=== PATIENT | male | born 1980 | race Caucasian/White ===

== ENCOUNTER 2017-02-13 13:30 | Emergency (ER) | payer SELFPAY ==
--- NOTE | 2017-02-13 14:37 | RAD ---
EXAM DESCRIPTION: Chest,2 Views CLINICAL HISTORY: palpitations COMPARISON: None FINDINGS: Two-view chest x-ray shows cardiomediastinal silhouette and pulmonary vasculature to be within normal limits. The lungs are normally aerated. No acute infiltrate or consolidation is seen. There is a 1 cm nodular density in the right suprahilar region between the posterior right sixth and seventh ribs is not appreciated on previous exam possibly overlapping the spinal lateral projection. There is a 6 mm nodular density in the right lower chest on PA projection only that could represent nipple shadow pulmonary nodule. Costophrenic angles are sharp. Osseous structures are unremarkable IMPRESSION: No radiographic evidence of acute cardiopulmonary disease. Question 1 cm noncalcified pulmonary nodule in the right suprahilar region. This could also represent prominent pulmonary vessel. Consider further evaluation with CT imaging. Pulmonary nodule versus nipple shadow in the right lower chest. Electronically signed by: Samm Stevenson MD 02/13/2017 2:36 PM CDT
--- NOTE | 2017-02-13 15:42 | ED.PDOC ---
History of Present Illness - General Chief Complaint: General Stated Complaint: Palpitations after getting up too fast Time Seen by Provider: 02/13/17 13:33 Source: patient Exam Limitations: no limitations - History of Present Illness Initial Comments: The patient is a 36-year-old male presenting to the emergency room secondary to a sensation of palpitations. The palpitations essentially stopped when he arrived here. He has recently had an upper respiratory tract infection. He has also recently stopped exercising. He does smoke and he does drink. He has had multiple previous episodes of palpitations in the past but on previous visits no one has been able to record any significant arrhythmia. He did wear a Holter device for one day after previous episode but did not have any episodes during that time. The patient reports that the palpitations lasted less than a minute today. He does have a history of some gastroesophageal reflux disease and takes medications on an as-needed basis. No chest pain. No syncopal or near syncope. He was unable to check his pulse during that time. Timing/Duration: unsure Severity: mild Improving Factors: nothing Worsening Factors: nothing Associated Symptoms: denies symptoms Allergies/Adverse Reactions: Allergies Penicillins Allergy (Verified 02/13/17 13:53) Unknown Home Medications: Ambulatory Orders NK [NK] 02/13/17 Review of Systems - Review of Systems Constitutional: States: no symptoms reported EENTM: States: no symptoms reported Respiratory: States: cough Cardiology: States: no symptoms reported Gastrointestinal/Abdominal: States: no symptoms reported Genitourinary: States: no symptoms reported Musculoskeletal: States: no symptoms reported Skin: States: no symptoms reported Neurological: States: no symptoms reported Endocrine: States: no symptoms reported All other Systems: No Change from Baseline Past Medical History (General) - Patient Medical History Hx Seizures: No Hx Stroke: No Hx Dementia: No Hx Asthma: No Hx of COPD: No Hx Cardiac Disorders: No Hx Congestive Heart Failure: No Hx Pacemaker: No Hx Hypertension: No Hx Thyroid Disease: No Hx Diabetes: No Hx Gastroesophageal Reflux: No Hx Renal Disease: No Hx Cancer: No Hx of HIV: No Hx Hepatitis C: No Hx MRSA: No - Vaccination History Hx Tetanus, Diphtheria Vaccination: Yes Hx Influenza Vaccination: No Hx Pneumococcal Vaccination: No - Social History Hx Tobacco Use: Yes Hx Chewing Tobacco Use: No Hx Alcohol Use: Yes Hx Substance Use: No Hx Substance Use Treatment: No Hx Depression: No Hx Physical Abuse: No Hx Emotional Abuse: No Hx Suspected Abuse: No - Female History Patient : No Family Medical History - Family History Mother Family History: Unknown Living Status: Hx Family Cancer: Yes - breast, then brain Father Living Status: Still Living Hx Cardiac Disease: Yes - CABG Physical Exam - Physical Exam General Appearance: Alert, Anxious, No apparent distress Eye Exam: bilateral normal Ears, Nose, Throat: hearing grossly normal, normal ENT inspection, normal pharynx Neck: non-tender, full range of motion, supple, normal inspection Respiratory: chest non-tender, lungs clear, normal breath sounds, no respiratory distress, no accessory muscle use Cardiovascular/Chest: normal peripheral pulses, regular rate, rhythm, no edema Peripheral Pulses: radial,right: 2+, radial,left: 2+, dorsalis pedis,right: 2+, dorsalis pedis,left: 2+ Gastrointestinal/Abdominal: non tender, soft Rectal Exam: deferred Back Exam: normal inspection, no CVA tenderness Extremity: normal range of motion, non-tender, normal inspection, no pedal edema , normal capillary refill Neurologic: ferry engineer II-XII nml as tested, no motor/sensory deficits, alert, normal mood/affect, oriented x 3 Skin Exam: normal color Comments: Vital Signs - 24 hr 02/13/17 13:53 Pulse Rate [ 93 H Left Radial] Respiratory 20 Rate Blood Pressure 144/98 [Left Arm] O2 Sat by Pulse 99 Oximetry Progress - Progress Progress: 02/13/17 15:43 the patient is a 36-year-old male presenting secondary to palpitations. Source of the palpitations is uncertain. Given his history, it could either be some esophageal irritation from his untreated gastroesophageal reflux disease or he may have a history of SVT that has gone undiagnosed to this point. I would recommend that the patient follow up with his primary care doctor in the coming week and get set up with a CardioNet device to wear for a period of 2 weeks. He should picker famotidine and take 20 mg twice daily for the next month and then 20 mg daily after that. I would recommend that he follow up with gastroenterology in a couple of months and have an upper endoscopy performed given his history of reflux. He should also decrease his alcohol and tobacco intake to help with that problem as well. He needs to keep a pulse oximeter with him so that he can check his pulse the next time he has palpitations. A number in the high 100s would help confirm the diagnosis of an arrhythmia. Additionally the patient did have a small nodule on his x-ray of his chest today. He should have an x-ray repeated in a few weeks for reevaluation of the area. ER warnings were given. - Results/Orders Results/Orders: Laboratory Tests 02/13/17 02/13/17 02/13/17 14:20 14:20 14:20 WBC 8.0 RBC 4.77 Hgb 14.1 Hct 41.7 L MCV 87.4 MCH 29.7 MCHC 33.9 RDW 13.6 Plt Count 161 MPV 8.8 Absolute Neuts (auto) 5.20 Absolute Lymphs (auto) 2.10 Absolute Monos (auto) 0.50 Absolute Eos (auto) 0.10 Absolute Basos (auto) 0.10 Neutrophils % 64.9 Lymphocytes % 26.8 Monocytes % 6.2 Eosinophils % 1.4 Basophils % 0.7 PT 10.3 INR 0.910 PTT (SP) 28.0 D-Dimer, Quantitative < 200 Sodium 135 Potassium 3.9 Chloride 100 L Carbon Dioxide 27 Anion Gap 11.9 L BUN 15 Creatinine 1.24 BUN/Creatinine Ratio 12.1 Random Glucose 98 Serum Osmolality 270.9 L Calcium 9.0 Magnesium 1.9 Total Bilirubin 0.4 AST 34 ALT 30 Alkaline Phosphatase 72 Creatine Kinase 102 CK-MB (CK-2) 1.2 CK-MB (CK-2) % Not Reportable Troponin I < 0.02 B-Natriuretic Peptide 5.1 Serum Total Protein 6.4 Albumin 3.5 Globulin 2.9 Albumin/Globulin Ratio 1.2 TSH 1.53 chest x-ray shows no definitive acute pathology however there is a right perihilar pulmonary nodule that does need to have a repeat chest x-ray performed in the coming weeks. Pulse oximetry confirms no tachycardia while the patient is here. Telemetry was not available. EKG shows normal sinus rhythm. No acute ST segment changes concerning for ischemia. Normal axis. Departure - Departure Clinical Impression: Intermittent palpitations Disposition: Discharge to Home or Self Care Condition: Fair Departure Forms: ED Discharge - Pt. Copy, Patient Portal Self Enrollment Instructions: Paroxysmal Supraventricular Tachycardia, DI for Gastroesophageal Reflux Disease (GERD) Diet: bland diet Activity: increase activity as tolerated Home Medications: Ambulatory Orders NK [NK] 02/13/17 Additional Instructions: the patient is a 36-year-old male presenting secondary to palpitations. Source of the palpitations is uncertain. Given his history, it could either be some esophageal irritation from his untreated gastroesophageal reflux disease or he may have a history of SVT that has gone undiagnosed to this point. I would recommend that the patient follow up with his primary care doctor in the coming week and get set up with a CardioNet device to wear for a period of 2 weeks. He should picker famotidine and take 20 mg twice daily for the next month and then 20 mg daily after that. I would recommend that he follow up with gastroenterology in a couple of months and have an upper endoscopy performed given his history of reflux. He should also decrease his alcohol and tobacco intake to help with that problem as well. He needs to keep a pulse oximeter with him so that he can check his pulse the next time he has palpitations. A number in the high 100s would help confirm the diagnosis of an arrhythmia. Additionally the patient did have a small nodule on his x-ray of his chest today. He should have an x-ray repeated in a few weeks for reevaluation of the area. ER warnings were given. instructions for maneuvers on how to terminate SVT have been given to the patient for him to try with his next episode, though previous episodes seem to have been brief already.
[2017-02-13 16:06] VITALS: BP 127/88; O2SAT 98
== END 2017-02-13 15:55 | disposition home or self-care (01) ==
LOC: ER 13:30
DX: R00.2 Palpitations (principal); R91.1 Solitary pulmonary nodule; Z87.891 Personal history of nicotine dependence; Z88.0 Allergy status to penicillin

== ENCOUNTER 2017-02-20 13:21 | Emergency (ER) | payer SELFPAY ==
[2017-02-20] MEDS ORDERED: predniSONE 20 MG TAB PO ONE (13:42)
[2017-02-20] MEDS ORDERED: IPRATROPIUM/ALBUTEROL 3 ML VIAL NEB ONE (13:42)
--- NOTE | 2017-02-20 13:42 | ED.PDOC ---
History of Present Illness - General Chief Complaint: Respiratory Problem Stated Complaint: COUGH Time Seen by Provider: 02/20/17 13:35 Source: patient Exam Limitations: no limitations - History of Present Illness Comments: Louis Linares 36 y/o male stated that he had productive cough on and off for the last 3 weeks which is not getting better .Denies asthma ,ill contact,or/ fever Timing/Duration: constant, other - 3 weeks Cough Quality/Degree: productive cough - clear phlegm Possible Cause: no prior episodes Worsening Factors: nothing Associated Symptoms: chest pain/soreness - on coughing Respiratory Risk Factors: other - smoking Allergies/Adverse Reactions: Allergies Penicillins Allergy (Verified 02/13/17 13:53) Unknown Home Medications: Ambulatory Orders Benzonatate Perles [Tessalon Perles] 100 mg PO TID #30 cap 02/20/17 Dextromethorphan-Diphenhydrami [Diabetic Tussin Cold & Fl 10-12.5-325 mg/5Ml] 2 tsp PO BID #120 liq 02/20/17 Sulfa/Trimeth 800/160 (Ds) Tab [Bactrim DS Tab] 1 ea PO BID #14 tab 02/20/17 predniSONE 10 mg PO BID #14 tab 02/20/17 Past Medical History (General) - Patient Medical History Hx Seizures: No Hx Stroke: No Hx Dementia: No Hx Asthma: No Hx of COPD: No Hx Cardiac Disorders: No Hx Congestive Heart Failure: No Hx Pacemaker: No Hx Hypertension: No Hx Thyroid Disease: No Hx Diabetes: No Hx Gastroesophageal Reflux: No Hx Renal Disease: No Hx Cancer: No Hx of HIV: No Hx Hepatitis C: No Hx MRSA: No Surgical History: other - orchiopexy in childhood for undescended testis - Vaccination History Hx Tetanus, Diphtheria Vaccination: Yes Hx Influenza Vaccination: No Hx Pneumococcal Vaccination: No - Social History Hx Tobacco Use: Yes Hx Chewing Tobacco Use: No Hx Alcohol Use: Yes Hx Substance Use: No Hx Substance Use Treatment: No Hx Depression: No Hx Physical Abuse: No Hx Emotional Abuse: No Hx Suspected Abuse: No - Female History Patient : No Family Medical History - Family History Mother Family History: Unknown Living Status: Hx Family Cancer: Yes - breast, then brain Father Living Status: Still Living Hx Family Asthma: Yes - COPD Hx Cardiac Disease: Yes - CABG Physical Exam - Physical Exam General Appearance: Alert, Comfortable, No apparent distress Eye Exam: bilateral normal ENT Exam: normal ENT inspection, hearing grossly normal, pharynx normal Neck: non-tender, full range of motion, normal inspection Respiratory: chest non-tender, no respiratory distress, wheezing Cardiovascular/Chest: normal peripheral pulses, regular rate, rhythm, no murmur Gastrointestinal/Abdominal: non tender, soft, no organomegaly Extremity: no pedal edema, no calf tenderness Neurologic: alert, normal mood/affect, oriented x 3 Skin Exam: normal color, warm/dry Lymphatic: no adenopathy Progress - Progress Progress: 02/20/17 13:51 Vital Signs - 8 hr 02/20/17 13:34 Temperature 98.4 F Pulse Rate [ 95 H Left Brachial] Respiratory 20 Rate Blood Pressure 133/95 [Left Arm] O2 Sat by Pulse 96 Oximetry - EKG/XRAY/CT XRAY: chest - no consolidation/pneumothorax Departure - Departure Clinical Impression: Bronchitis Time of Disposition: 14:42 Disposition: Discharge to Home or Self Care Departure Forms: ED Discharge - Pt. Copy, Patient Portal Self Enrollment Instructions: Acute Bronchitis, DI for Acute Bronchitis, Acute Bronchitis ( Alternative Therapy), Serious Ways to Stop Smoking, All Forms of Smoking Are Bad for You, How to Quit Smoking Prescriptions: Benzonatate Perles [Tessalon Perles] 100 mg PO TID #30 cap Dextromethorphan-Diphenhydrami [Diabetic Tussin Cold & Fl 10-12.5-325 mg/5Ml] 2 tsp PO BID #120 liq predniSONE 10 mg PO BID #14 tab Sulfa/Trimeth 800/160 (Ds) Tab [Bactrim DS Tab] 1 ea PO BID #14 tab Home Medications: Ambulatory Orders Benzonatate Perles [Tessalon Perles] 100 mg PO TID #30 cap 02/20/17 Dextromethorphan-Diphenhydrami [Diabetic Tussin Cold & Fl 10-12.5-325 mg/5Ml] 2 tsp PO BID #120 liq 17 Sulfa/Trimeth 800/160 (Ds) Tab [Bactrim DS Tab] 1 ea PO BID #14 tab 02/20/17 predniSONE 10 mg PO BID #14 tab 02/20/17
[2017-02-20 13:44] VITALS: TEMP 98.4
[2017-02-20] MEDS ORDERED: BENZONATATE PERLES 100 MG CAP PO ONE (13:45)
[2017-02-20] MEDS ORDERED: diphenhydrAMINE HCL 25 MG CAP PO ONE (13:45)
--- NOTE | 2017-02-20 14:17 | RAD ---
EXAM DESCRIPTION: Chest,2 Views CLINICAL HISTORY: cough COMPARISON: February 13, 2017 FINDINGS: Two-view chest x-ray shows cardiomediastinal silhouette and pulmonary vasculature to be within normal limits. The lungs are normally aerated and clear. Costophrenic angles are sharp. Osseous structures are unremarkable IMPRESSION: No radiographic evidence of acute cardiopulmonary disease. Abdomen 1 cm nodular density in the right suprahilar region is unchanged from previous exam. Electronically signed by: Samm Stevenson MD 02/20/2017 2:15 PM CDT
[2017-02-20 15:04] VITALS: BP 123/83; O2SAT 95
== END 2017-02-20 15:00 | disposition home or self-care (01) ==
LOC: ER 13:21
DX: J40 Bronchitis, not specified as acute or chronic (principal); Z88.0 Allergy status to penicillin; Z87.891 Personal history of nicotine dependence
CPT/HCPCS: 71020; 94640; J7512; J7620; Q0163

== ENCOUNTER → 2017-04-15 | Outpatient (CLI) | payer SELFPAY ==
--- NOTE | 2017-04-17 11:57 | CT ---
EXAM DESCRIPTION: Chest w/Contrast CT. CLINICAL HISTORY: ABN FINDINGS ON DIAGNOSTIC IMAGING COMPARISON: Chest radiograph 02/20/2017. TECHNIQUE: Spiral-axial scans at 5.0 mm intervals through the lungs and thorax with IV contrast. 2.5 mm lung algorithm axial reconstructions. Coronal and sagittal 2.0 Mm reconstructions. No adverse reactions. Total Exam DLP: 541.43 mGy-cm. This exam was performed according to our departmental dose-optimization program which includes automated exposure control, adjustment of the mA and/or kV according to patient size and/or use of iterative reconstruction technique; to reduce radiation dose to as low as reasonably achievable (ALARA). FINDINGS: Small bilateral apical pleural blebs and bulla. No abnormal nodules infiltrates or masses bilaterally. No pleural effusion or pneumothorax. Specifically, no pulmonary nodule in the right suprahilar region. Included thyroid with homogeneous enhancement. No adenopathy or soft tissue masses at the base of the neck or bilateral axilla. No soft tissue masses or enlarged lymph nodes in the mediastinum or hilum bilaterally. Gallbladder is contracted. Included spleen and adrenal glands are unremarkable. No focal abnormalities in the included pancreas or liver. No subdiaphragmatic fluid or free air in the included peritoneal space. Thoracic osseous structures are unremarkable. No bone destruction. IMPRESSION: 1. No abnormalities in the lungs mediastinum or sukhdev. Specifically, no pulmonary nodule in the right suprahilar region. Electronically signed by: Jhoan Solis MD 04/17/2017 11:56 AM [employer]
== END ==
LOC: YCFC.O 14:17
DX: R93.8 Abnormal findings on diagnostic imaging of other specified body structures (principal)

== ENCOUNTER 2017-07-15 10:43 | Emergency (ER) | payer SELFPAY ==
[2017-07-15 10:58] VITALS: TEMP 98.5
--- NOTE | 2017-07-15 14:38 | ED.PDOC ---
History of Present Illness - General Chief Complaint: Chest Pain/[place] Stated Complaint: chest tightness Time Seen by Provider: 07/15/17 12:39 - History of Present Illness Allergies/Adverse Reactions: Allergies Penicillins Allergy (Verified 02/13/17 13:53) Unknown Home Medications: Ambulatory Orders Aspirin [(None)] 325 mg PO QD 07/15/17 Hyoscyamine Sulfate [Levsin/Sl] 0.125 mg SL Q6HR PRN #30 sub 07/15/17 Pantoprazole Tablet [Protonix] 40 mg PO ACBK 10 Days #10 tab 07/15/17 Sucralfate Tab [Carafate Tab] 1 gm PO TID #30 tablet 07/15/17 Past Medical History (General) - Patient Medical History Hx Seizures: No Hx Stroke: No Hx Dementia: No Hx Asthma: No Hx of COPD: No Hx Cardiac Disorders: Yes - SVT Hx Congestive Heart Failure: No Hx Pacemaker: No Hx Hypertension: No Hx Thyroid Disease: No Hx Diabetes: No Hx Gastroesophageal Reflux: No Hx Renal Disease: No Hx Cancer: No Hx of HIV: No Hx Hepatitis C: No Hx MRSA: No - Vaccination History Hx Tetanus, Diphtheria Vaccination: Yes Hx Influenza Vaccination: No Hx Pneumococcal Vaccination: No - Social History Hx Tobacco Use: Yes Hx Chewing Tobacco Use: No Hx Alcohol Use: Yes Hx Substance Use: No Hx Substance Use Treatment: No Hx Depression: No Hx Physical Abuse: No Hx Emotional Abuse: No Hx Suspected Abuse: No - Female History Patient : No Family Medical History - Family History Mother Family History: Unknown Living Status: Hx Family Cancer: Yes - breast, then brain Father Living Status: Still Living Hx Family Asthma: Yes - COPD Hx Cardiac Disease: Yes - CABG Progress - Progress Progress: 07/15/17 14:39 pt reports improvement of burping and gerd symptoms after zantac; gave chest pain precautions; will return if symptoms change and become more inline with angina. pt is perc negative. unlikely dissection- atypical presentation bilateral equal pulses. currently pt non toxic, no symptoms Departure - Departure Clinical Impression: Precordial chest pain GERD (gastroesophageal reflux disease) Qualifiers: Esophagitis presence: esophagitis presence not specified Qualified Code(s): K21.9 - Gastro-esophageal reflux disease without esophagitis Time of Disposition: 14:35 Disposition: Discharge to Home or Self Care Condition: Excellent Departure Forms: ED Discharge - Pt. Copy, Patient Portal Self Enrollment Instructions: DI for Chest Pain, Heartburn -- Overview, GERD Diet Diet: full liquid diet - for next 48 hours Activity: increase activity as tolerated Referrals: Kimber Blackwell MD [Primary Care Provider] - 1-2 Weeks Prescriptions: Hyoscyamine Sulfate [Levsin/Sl] 0.125 mg SL Q6HR PRN #30 sub PRN Reason: Pain Pantoprazole Tablet [Protonix] 40 mg PO ACBK 10 Days #10 tab Sucralfate Tab [Carafate Tab] 1 gm PO TID #30 tablet Home Medications: Ambulatory Orders Aspirin [(None)] 325 mg PO QD 07/15/17 Hyoscyamine Sulfate [Levsin/Sl] 0.125 mg SL Q6HR PRN #30 sub 07/15/17 Pantoprazole Tablet [Protonix] 40 mg PO ACBK 10 Days #10 tab 07/15/17 Sucralfate Tab [Carafate Tab] 1 gm PO TID #30 tablet 07/15/17 Additional Instructions: return if acute worsening of symptoms, problem, concern; continue tobacco cessation and decrease ETOH intake
[2017-07-15 14:56] VITALS: BP 152/93; O2SAT 95
== END 2017-07-15 14:56 | disposition home or self-care (01) ==
LOC: ER 10:43
DX: R07.2 Precordial pain (principal); K21.9 Gastro-esophageal reflux disease without esophagitis; Z87.891 Personal history of nicotine dependence; Z79.82 Long term (current) use of aspirin

== ENCOUNTER 2017-10-26 12:20 | Emergency (ER) | payer SELFPAY ==
[2017-10-26 12:39] VITALS: TEMP 98.8
--- NOTE | 2017-10-26 12:41 | ED.PDOC ---
History of Present Illness - General Chief Complaint: General Stated Complaint: L anterolateral chest wall discomfort Time Seen by Provider: 10/26/17 12:37 Source: patient Exam Limitations: no limitations - History of Present Illness Initial Comments: Patient presents with left rib pain after falling on his left side two night ago. He said he was drinking and lost his balance. At first the pain wasn't so bad but then it got worse over the weekend. Pain is throbbing and constant, located over the left anterio-lateral 7th rib. Worse with movement, better with rest. No associated symptoms. No previous injuries. No other complaints. Timing/Duration: other - 48 hours Severity: mild Improving Factors: rest Worsening Factors: movement Associated Symptoms: denies symptoms Allergies/Adverse Reactions: Allergies Penicillins Allergy (Verified 10/26/17 12:26) Unknown Home Medications: Ambulatory Orders NK [NK] 10/26/17 Past Medical History (General) - Patient Medical History Hx Seizures: No Hx Stroke: No Hx Dementia: No Hx Asthma: No Hx of COPD: No Hx Cardiac Disorders: Yes - SVT Hx Congestive Heart Failure: No Hx Pacemaker: No Hx Hypertension: No Hx Thyroid Disease: No Hx Diabetes: No Hx Gastroesophageal Reflux: No Hx Renal Disease: No Hx Cancer: No Hx of HIV: No Hx Hepatitis C: No Hx MRSA: No - Vaccination History Hx Tetanus, Diphtheria Vaccination: Yes Hx Influenza Vaccination: No Hx Pneumococcal Vaccination: No - Social History Hx Tobacco Use: Yes Hx Chewing Tobacco Use: No Hx Alcohol Use: Yes Hx Substance Use: No Hx Substance Use Treatment: No Hx Depression: No Hx Physical Abuse: No Hx Emotional Abuse: No Hx Suspected Abuse: No - Female History Patient : No Family Medical History - Family History Mother Family History: Unknown Living Status: Hx Family Cancer: Yes - breast, then brain Father Living Status: Still Living Hx Family Asthma: Yes - COPD Hx Cardiac Disease: Yes - CABG Physical Exam - Physical Exam General Appearance: Alert Eye Exam: bilateral normal Ears, Nose, Throat: normal ENT inspection Neck: non-tender, full range of motion, supple Respiratory: lungs clear, normal breath sounds, no respiratory distress Cardiovascular/Chest: normal peripheral pulses, regular rate, rhythm, other - TTP over lateral left ribs 7-8. There is a quarter shaped bruise anteriorly at the same level that is NTTP. Gastrointestinal/Abdominal: normal bowel sounds, non tender, soft Back Exam: normal inspection, no CVA tenderness Extremity: normal range of motion, non-tender Neurologic: evaluation analyst II-XII nml as tested, no motor/sensory deficits, alert Skin Exam: normal color Progress - Progress Progress: 10/26/17 13:12 3 views of the left ribs showed no fractures nor dislocations. Care instructions given. Questions were elicited and answered. Patient voiced understanding and agreement with the plan. Departure - Departure Clinical Impression: Contusion of rib on left side, Tobacco abuse counseling Disposition: Discharge to Home or Self Care Condition: Good Departure Forms: ED Discharge - Pt. Copy, Patient Portal Self Enrollment Diet: resume usual diet Activity: increase activity as tolerated Referrals: Kimber Blackwell MD [Primary Care Provider] - 1-2 Weeks Home Medications: Ambulatory Orders NK [NK] 10/26/17 Additional Instructions: Ice to painful area three times per day for two more days then switch to heat twice per day until healed. Tylenol or ibuprofen for pain control. Stop smoking tobacco of any sort. Follow up with your regular doctor if pain continues longer than two weeks or if you develop shortness of breath. See your regular doctor about smoking cessation.
--- NOTE | 2017-10-26 13:04 | RAD ---
EXAM: 3 VIEWS OF THE LEFT RIBS AND PA CHEST RADIOGRAPH CLINICAL INDICATION: Pain post fall COMPARISON: Compared to the chest radiographs of April 15, 2017. FINDINGS: No displaced left rib fractures. No lytic or blastic bone lesions. The partially visualized left humerus, left shoulder and left scapula appear intact. Left lung is clear. No left effusion or left pneumothorax. IMPRESSION: No displaced rib fractures. Normal examination. Electronically signed by: Joaquin Collins MD 10/26/2017 1:03 PM CDT
[2017-10-26] MEDS ORDERED: IBUPROFEN 200 MG TAB PO ONE (13:28)
[2017-10-26 13:43] VITALS: BP 139/79; O2SAT 99
== END 2017-10-26 13:36 | disposition home or self-care (01) ==
LOC: ER 12:20
DX: S20.212A Contusion of left front wall of thorax, initial encounter (principal); F17.200 Nicotine dependence, unspecified, uncomplicated; Z88.0 Allergy status to penicillin; W18.39XA Other fall on same level, initial encounter; Y92.89 Other specified places as the place of occurrence of the external cause

== ENCOUNTER 2018-05-26 17:04 | Emergency (ER) | payer SELFPAY ==
[2018-05-26 17:17] VITALS: BP 136/114; TEMP 98.2; O2SAT 97
[2018-05-26] MEDS ORDERED: OSELTAMIVIR 75 MG CAP PO ONE (17:19)
[2018-05-26] MEDS ORDERED: AZITHROMYCIN 250 MG TAB PO ONE (17:19)
[2018-05-26] MEDS ORDERED: IBUPROFEN 200 MG TAB PO ONE (17:21)
--- NOTE | 2018-05-26 17:22 | ED.PDOC ---
History of Present Illness - General Time Seen by Provider: 05/26/18 17:07 Source: patient Exam Limitations: no limitations - History of Present Illness Initial Comments: The patient is 37-year-old male presenting to the emergency room with sore throat and runny nose cough and congestion along with body aches. His son tested positive for the flu last night. He started approximately 1-2 weeks ago with laryngitis and a moderately productive cough. He did not get this treated but was getting better until last night when he started getting worse again. No hypoxia. He is moderately hypertensive but he is obviously uncomfortable. No respiratory distress. No hypoxia. Timing/Duration: unsure Severity: moderate Improving Factors: nothing Worsening Factors: nothing Associated Symptoms: cough, diaphoresis, fever/chills, headaches, loss of appetite, malaise Allergies/Adverse Reactions: Allergies Penicillins Allergy (Verified 05/26/18 17:17) Unknown Home Medications: Ambulatory Orders Azithromycin 500 mg PO DAILY #5 tab 05/26/18 Oseltamivir Capsule [Tamiflu] 75 mg PO BID 5 Days #10 capsule 05/26/18 Review of Systems - Review of Systems Constitutional: States: chills, fever, malaise EENTM: States: nose congestion, throat pain Respiratory: States: cough Cardiology: States: no symptoms reported Gastrointestinal/Abdominal: States: no symptoms reported Genitourinary: States: no symptoms reported Musculoskeletal: States: muscle pain Skin: States: no symptoms reported Neurological: States: headache Endocrine: States: no symptoms reported All other Systems: No Change from Baseline Past Medical History (General) - Patient Medical History Hx Seizures: No Hx Stroke: No Hx Dementia: No Hx Asthma: No Hx of COPD: No Hx Cardiac Disorders: Yes - SVT Hx Congestive Heart Failure: No Hx Pacemaker: No Hx Hypertension: No Hx Thyroid Disease: No Hx Diabetes: No Hx Gastroesophageal Reflux: No Hx Renal Disease: No Hx Cancer: No Hx of HIV: No Hx Hepatitis C: No Hx MRSA: No Surgical History: no surgical history - Vaccination History Hx Tetanus, Diphtheria Vaccination: Yes Hx Influenza Vaccination: No Hx Pneumococcal Vaccination: No - Social History Hx Tobacco Use: Yes Hx Chewing Tobacco Use: No Hx Alcohol Use: Yes - ocassionally Hx Substance Use: No Hx Substance Use Treatment: No Hx Depression: No Hx Physical Abuse: No Hx Emotional Abuse: No Hx Suspected Abuse: No - Female History Patient : No Family Medical History - Family History Mother Family History: Unknown Living Status: Hx Family Cancer: Yes - breast, then brain Father Living Status: Still Living Hx Family Asthma: Yes - COPD Hx Cardiac Disease: Yes - CABG Physical Exam - Physical Exam General Appearance: Alert, Other - He is obviously uncomfortable Eye Exam: bilateral normal Ears, Nose, Throat: nasal congestion, pharyngeal erythema Neck: full range of motion, supple Respiratory: lungs clear, normal breath sounds, no respiratory distress, no accessory muscle use Cardiovascular/Chest: normal peripheral pulses, regular rate, rhythm, no edema Peripheral Pulses: radial,right: 2+, radial,left: 2+ Gastrointestinal/Abdominal: non tender, soft Rectal Exam: deferred Back Exam: no CVA tenderness, no vertebral tenderness Extremity: non-tender, normal inspection, no pedal edema, normal capillary refill Neurologic: detention sergeant II-XII nml as tested, alert, normal mood/affect, oriented x 3 Skin Exam: normal color Comments: Vital Signs - 24 hr 05/26/18 17:10 Temperature 98.2 F Pulse Rate [ 123 H Left Radial] Respiratory 26 H Rate Blood Pressure 136/114 [Left Arm] O2 Sat by Pulse 97 Oximetry Progress - Progress Progress: 05/26/18 17:23 the patient is a 37-year-old male presenting with what appears to be incompletely resolved mild bronchitis with what is most likely superimposed influenza given that his son tested positive last night. The patient is going to be covered with azithromycin and Tamiflu. He was given doses of both here. He also needs to keep himself well hydrated and take Motrin 600 mg by mouth every 8 hours with some food. ER warnings were given. Keep routine follow-up with primary care doctor otherwise. Departure - Departure Clinical Impression: Influenza Acute bronchitis Qualifiers: Bronchitis organism: unspecified organism Qualified Code(s): J20.9 - Acute bronchitis, unspecified Disposition: Discharge to Home or Self Care Condition: Fair Instructions: Flu, Adult (DC) Diet: regular diet Activity: increase activity as tolerated Prescriptions: Azithromycin 500 mg PO DAILY #5 tab Oseltamivir Capsule [Tamiflu] 75 mg PO BID 5 Days #10 capsule Home Medications: Ambulatory Orders Azithromycin 500 mg PO DAILY #5 tab 05/26/18 Oseltamivir Capsule [Tamiflu] 75 mg PO BID 5 Days #10 capsule 05/26/18 Additional Instructions: the patient is a 37-year-old male presenting with what appears to be incompletely resolved mild bronchitis with what is most likely superimposed influenza given that his son tested positive last night. The patient is going to be covered with azithromycin and Tamiflu. He was given doses of both here. He also needs to keep himself well hydrated and take Motrin 600 mg by mouth every 8 hours with some food. ER warnings were given. Keep routine follow-up with primary care doctor otherwise.
== END 2018-05-26 17:50 | disposition home or self-care (01) ==
LOC: ER 17:04
DX: J20.9 Acute bronchitis, unspecified (principal); J11.1 Influenza due to unidentified influenza virus with other respiratory manifestations; Z88.0 Allergy status to penicillin; Z87.891 Personal history of nicotine dependence

== ENCOUNTER 2018-07-13 08:22 | Emergency (ER) | payer SELFPAY ==
[2018-07-13] MEDS ORDERED: IBUPROFEN 200 MG TAB PO ONE (08:54)
--- NOTE | 2018-07-13 09:09 | ED.PDOC ---
History of Present Illness - General Chief Complaint: Fever Stated Complaint: chills, fever Time Seen by Provider: 07/13/18 09:02 Source: patient Exam Limitations: no limitations - History of Present Illness Initial Comments: PT PRESENTS TO ED WITH COMPLAINTS OF SUBJECTIVE FEVER, BODYACHES AND RED BUMPS NOTED ON BODY X 1 DAY. PT DENIES COUGH, CONGESTION, NAUSEA, VOMITING, DIARRHEA. PT IS CONCERNED HE MAY HAVE THE FLU AND WANTS TO BE CHECKED. Severity: mild Associated Symptoms: fever/chills, rash Allergies/Adverse Reactions: Allergies Penicillins Allergy (Verified 05/26/18 17:17) Unknown Home Medications: Ambulatory Orders Azithromycin 500 mg PO DAILY #5 tab 05/26/18 Oseltamivir Capsule [Tamiflu] 75 mg PO BID 5 Days #10 capsule 05/26/18 Ibuprofen 800 mg PO Q8HR PRN #30 tab 07/13/18 Oseltamivir Capsule [Tamiflu] 75 mg PO BID 5 Days #10 capsule 07/13/18 Review of Systems - Review of Systems Constitutional: States: chills, fever. Denies: malaise EENTM: Denies: nose congestion, throat pain Respiratory: Denies: cough, short of breath Gastrointestinal/Abdominal: Denies: abdominal pain, diarrhea, nausea, vomiting Past Medical History (General) - Patient Medical History Hx Seizures: No Hx Stroke: No Hx Dementia: No Hx Asthma: No Hx of COPD: No Hx Cardiac Disorders: Yes - SVT Hx Congestive Heart Failure: No Hx Pacemaker: No Hx Hypertension: No Hx Thyroid Disease: No Hx Diabetes: No Hx Gastroesophageal Reflux: No Hx Renal Disease: No Hx Cancer: No Hx of HIV: No Hx Hepatitis C: No Hx MRSA: No Surgical History: other - Vaccination History Hx Tetanus, Diphtheria Vaccination: Yes Hx Influenza Vaccination: No Hx Pneumococcal Vaccination: No - Social History Hx Tobacco Use: Yes Hx Chewing Tobacco Use: No Hx Alcohol Use: Yes - ocassionally Hx Substance Use: No Hx Substance Use Treatment: No Hx Depression: No Hx Physical Abuse: No Hx Emotional Abuse: No Hx Suspected Abuse: No - Female History Patient : No Family Medical History - Family History Mother Family History: Unknown Living Status: Hx Family Cancer: Yes - breast, then brain Father Living Status: Still Living Hx Family Asthma: Yes - COPD Hx Cardiac Disease: Yes - CABG Physical Exam - Physical Exam General Appearance: Alert, Comfortable, No apparent distress, Well Developed, Well Groomed, Well Hydrated Eye Exam: bilateral normal Ears, Nose, Throat: hearing grossly normal Neck: supple, normal inspection Respiratory: lungs clear, normal breath sounds, no respiratory distress Cardiovascular/Chest: regular rate, rhythm, no murmur Gastrointestinal/Abdominal: normal bowel sounds, non tender, soft Extremity: normal inspection Neurologic: alert, normal mood/affect, oriented x 3 Skin Exam: normal color, warm/dry, rash - SCATTERED ERYTHEMATOUS PAPULAR LESIONS ON TRUNK AND EXTREMITIES. Progress - Progress Progress: 07/13/18 09:52 PT RESTING COMFORTABLY ON RE-EVAL. LAB FINDINGS DISCUSSED. RECOMMENDED THAT PT RETURN IF HE DEVELOPS FURTHER SYMPTOMS. RECOMMENDED IBUPROFEN NEEDED FOR FEVER. WILL PRESCRIBE TAMIFLU FOR PT TO TAKE IF FLU SYMPTOMS DO ARISE. - Results/Orders Results/Orders: INFLUENZA A/B- NEGATIVE Departure - Departure Clinical Impression: Fever in adult, Rash and nonspecific skin eruption Time of Disposition: 09:55 Disposition: Discharge to Home or Self Care Condition: Good Departure Forms: ED Discharge - Pt. Copy, Patient Portal Self Enrollment Instructions: DI for Fever (Symptom) -- Adult, Skin Rash (DC) Referrals: [facility] [Provider Group] - 1-2 Weeks Prescriptions: Ibuprofen 800 mg PO Q8HR PRN #30 tab PRN Reason: Pain Oseltamivir Capsule [Tamiflu] 75 mg PO BID 5 Days #10 capsule Home Medications: Ambulatory Orders Azithromycin 500 mg PO DAILY #5 tab 05/26/18 Oseltamivir Capsule [Tamiflu] 75 mg PO BID 5 Days #10 capsule 05/26/18 Ibuprofen 800 mg PO Q8HR PRN #30 tab 07/13/18 Oseltamivir Capsule [Tamiflu] 75 mg PO BID 5 Days #10 capsule 07/13/18
[2018-07-13 10:07] VITALS: BP 138/87; TEMP 99.7; O2SAT 95
== END 2018-07-13 10:07 | disposition home or self-care (01) ==
LOC: ER 08:22
DX: R50.9 Fever, unspecified (principal); R21 Rash and other nonspecific skin eruption; Z87.891 Personal history of nicotine dependence

== ENCOUNTER 2018-07-14 12:18 | Emergency (ER) | payer SELFPAY ==
--- NOTE | 2018-07-14 12:43 | ED.PDOC ---
History of Present Illness - General Chief Complaint: General Stated Complaint: Pt complains of swollen L testicle Time Seen by Provider: 07/14/18 12:42 Source: patient Exam Limitations: no limitations - History of Present Illness Initial Comments: Louis Linares 38 y/o male came today with painful left testicle since this am also with low grade fever and body aches .Seen Er yesterday for flu like symptoms -flu swab was negative.No chronic medical problem ,no testicular trauma,Denies STI,single partner opposite sex. Timing/Duration: 24 hours Severity: moderate Improving Factors: nothing Worsening Factors: nothing Associated Symptoms: other - see hpi Allergies/Adverse Reactions: Allergies Penicillins Allergy (Verified 07/14/18 12:51) Unknown Home Medications: Ambulatory Orders Acetamin W/Cod #3 Tab [Tylenol w/CODEINE #3] 1 ea PO Q8HRS PRN #14 tab 07/14/18 Ciprofloxacin [Cipro] 250 mg PO Q12H #42 tablet 07/14/18 Review of Systems - Review of Systems Constitutional: States: no symptoms reported Respiratory: States: no symptoms reported Cardiology: States: no symptoms reported Gastrointestinal/Abdominal: States: no symptoms reported Genitourinary: States: see HPI Musculoskeletal: States: no symptoms reported All other Systems: Reviewed and Negative, No Change from Baseline Past Medical History (General) - Patient Medical History Hx Seizures: No Hx Stroke: No Hx Dementia: No Hx Asthma: No Hx of COPD: No Hx Cardiac Disorders: Yes - SVT Hx Congestive Heart Failure: No Hx Pacemaker: No Hx Hypertension: No Hx Thyroid Disease: No Hx Diabetes: No Hx Gastroesophageal Reflux: No Hx Renal Disease: No Hx Cancer: No Hx of HIV: No Hx Hepatitis C: No Hx MRSA: No Surgical History: other - orchiopexy - Vaccination History Hx Tetanus, Diphtheria Vaccination: Yes Hx Influenza Vaccination: No Hx Pneumococcal Vaccination: No - Social History Hx Tobacco Use: Yes Hx Chewing Tobacco Use: No Hx Alcohol Use: Yes - ocassionally Hx Substance Use: No Hx Substance Use Treatment: No Hx Depression: No Hx Physical Abuse: No Hx Emotional Abuse: No Hx Suspected Abuse: No - Female History Patient : No Family Medical History - Family History Mother Family History: Unknown Living Status: Hx Family Cancer: Yes - breast, then brain Father Living Status: Still Living Hx Family Asthma: Yes - COPD Hx Cardiac Disease: Yes - CABG Physical Exam - Physical Exam General Appearance: Alert, Comfortable, No apparent distress Eye Exam: bilateral normal Ears, Nose, Throat: hearing grossly normal, normal ENT inspection, normal phary nx Neck: supple, normal inspection Respiratory: lungs clear, normal breath sounds Cardiovascular/Chest: normal peripheral pulses, regular rate, rhythm, no murmur Peripheral Pulses: radial,right: 2+, radial,left: 2+ Gastrointestinal/Abdominal: non tender, soft, no organomegaly, other - Genitalia-normal circumcised male both testes scrotal but left testes tender/swollen no nodules Back Exam: no CVA tenderness, no vertebral tenderness Extremity: no pedal edema, no calf tenderness Neurologic: alert, oriented x 3 Skin Exam: normal color, warm/dry Lymphatic: no adenopathy Progress - Progress Progress: 07/14/18 13:01 Vital Signs - 8 hr 07/14/18 12:43 Temperature 99.9 F H Pulse Rate [ 123 H Left Radial] Respiratory 16 Rate Blood Pressure 133/106 [Left Arm] O2 Sat by Pulse 99 Oximetry - Results/Orders Results/Orders: Laboratory Results - last 24 hr 07/14/18 13:03 Urine Color Yellow Urine Appearance Clear Urine pH 6.0 Ur Specific [place] <= 1.005 Urine Protein Negative Urine Glucose (UA) Negative Urine Ketones Negative Urine Blood Trace-lysed H Urine Nitrite Negative Urine Bilirubin Negative Urine Urobilinogen 0.2 Ur Leukocyte Esterase Negative Urine RBC 0-1 Urine WBC 0 Ur Epithelial Cells 0 Urine Bacteria 0 - EKG/XRAY/CT Xray Comments: Testicular sono-orchitis Departure - Departure Clinical Impression: Epididymo-orchitis without abscess Time of Disposition: 15:40 Disposition: Discharge to Home or Self Care Condition: Fair Departure Forms: ED Discharge - Pt. Copy, Patient Portal Self Enrollment Instructions: Epididymitis (DC), Epididymitis Prescriptions: Acetamin W/Cod #3 Tab [Tylenol w/CODEINE #3] 1 ea PO Q8HRS PRN #14 tab PRN Reason: Pain Ciprofloxacin [Cipro] 250 mg PO Q12H #42 tablet Home Medications: Ambulatory Orders Acetamin W/Cod #3 Tab [Tylenol w/CODEINE #3] 1 ea PO Q8HRS PRN #14 tab 07/14/18 Ciprofloxacin [Cipro] 250 mg PO Q12H #42 tablet 07/14/18
[2018-07-14] MEDS ORDERED: levoFLOXacin 500MG IV 500 MG in PREMIX BAG 1 BAG IVPB ONE (13:47)
[2018-07-14] MEDS ORDERED: HYDROcodone 7.5MG/APAP 325MG 1 EA TAB PO ONE (13:47)
[2018-07-14] MEDS ORDERED: ACETAMINOPHEN 500 MG TAB PO ONE (13:48)
[2018-07-14] MEDS ORDERED: levoFLOXacin 500MG IV 100 ML IVPB ONE (14:11)
--- NOTE | 2018-07-14 14:52 | US ---
EXAM DESCRIPTION: Testicular: Ultrasound. CLINICAL HISTORY: 38 years Male pain/swelling LEFT Testicle COMPARISON: None. TECHNIQUE: Transcutaneous scanning ; two-dimensional and Doppler modes. FINDINGS: Dimensions of the right testicle are 4.4 x 3.5 cm, with heterogeneous echogenicity and normal color Doppler flow. Epididymal head measures 11.8 x 8.6 x 6.9 mm, with posterior shadowing but no definite calcifications. Decreased echogenicity and increased color Doppler flow. No scrotal wall thickening. Moderate Hydrocele. Dimensions of the left testicle are 5.0 x 3.6 cm, with heterogeneous echogenicity and increased color Doppler flow. Epididymal head measures 11 x 12 x 10 mm, with 4 x 3 mm cyst. Heterogeneous echogenicity and increased color Doppler flow. No scrotal wall thickening. Moderate Hydrocele. IMPRESSION: 1. Bilateral testicles are inhomogeneous with no definite mass. Normal vascularity on the right with increased vascularity on the left. Also left testicle slightly larger. This may represent orchitis. 2. Bilateral epididymides are enlarged and increased vascularity which could represent early or chronic epididymitis. Cyst on the left epididymis. Moderate left hydrocele. Electronically signed by: Jhoan Solis MD 07/14/2018 2:48 PM CDT
[2018-07-14 16:11] VITALS: BP 122/92; TEMP 99.6; O2SAT 97
== END 2018-07-14 16:10 | disposition home or self-care (01) ==
LOC: ER 12:18
DX: N45.3 Epididymo-orchitis (principal); Z87.891 Personal history of nicotine dependence; Z88.0 Allergy status to penicillin
CPT/HCPCS: 76870; 81001; J1956

== ENCOUNTER 2018-07-16 02:57 | Emergency (ER) | payer SELFPAY ==
[2018-07-16 03:11] VITALS: TEMP 99.1
[2018-07-16] MEDS ORDERED: SULFA/TRIMETH 800/160 (DS) TAB 1 EA TAB PO ONE (03:30)
--- NOTE | 2018-07-16 03:49 | ED.PDOC ---
History of Present Illness - General Chief Complaint: General Stated Complaint: tesicular pain and wants medication changed Time Seen by Provider: 07/16/18 03:00 Source: patient Exam Limitations: no limitations - History of Present Illness Initial Comments: Patient presents with a headache. He was diagnosed with epidimytis three days ago, received levofloxacin in the E.R. and started ciprofloxacin yesterday. He says that the ciprofloxacin has given him a headache. He wishes to change to Bactrim. No other complaints. Timing/Duration: other - two days Severity: mild Improving Factors: nothing Worsening Factors: nothing Associated Symptoms: other - testicular pain Allergies/Adverse Reactions: Allergies Penicillins Allergy (Verified 07/16/18 03:11) Unknown Home Medications: Ambulatory Orders Acetamin W/Cod #3 Tab [Tylenol w/CODEINE #3] 1 ea PO Q8HRS PRN #14 tab 07/14/18 Ciprofloxacin [Cipro] 250 mg PO Q12H #42 tablet 07/14/18 Sulfa/Trimeth 800/160 (Ds) Tab [Bactrim DS] 1 tablet PO BID #19 tab 07/16/18 Review of Systems - Review of Systems Constitutional: States: no symptoms reported EENTM: States: no symptoms reported Respiratory: States: no symptoms reported Cardiology: States: no symptoms reported Genitourinary: States: see HPI Musculoskeletal: States: no symptoms reported Skin: States: no symptoms reported Neurological: States: headache Endocrine: States: no symptoms reported Hematologic/Lymphatic: States: no symptoms reported Past Medical History (General) - Patient Medical History Hx Seizures: No Hx Stroke: No Hx Dementia: No Hx Asthma: No Hx of COPD: No Hx Cardiac Disorders: Yes - SVT Hx Congestive Heart Failure: No Hx Pacemaker: No Hx Hypertension: No Hx Thyroid Disease: No Hx Diabetes: No Hx Gastroesophageal Reflux: No Hx Renal Disease: No Hx Cancer: No Hx of HIV: No Hx Hepatitis C: No Hx MRSA: No - Vaccination History Hx Tetanus, Diphtheria Vaccination: No Hx Influenza Vaccination: No Hx Pneumococcal Vaccination: No Immunizations Up to Date: No - Social History Hx Tobacco Use: Yes Hx Chewing Tobacco Use: No Hx Alcohol Use: Yes - occ Hx Substance Use: No Hx Substance Use Treatment: No Hx Depression: No Hx Physical Abuse: No Hx Emotional Abuse: No Hx Suspected Abuse: No - Female History Patient : No Family Medical History - Family History Mother Family History: Unknown Living Status: Hx Family Cancer: Yes - breast, then brain Father Family History: Unknown Living Status: Still Living Hx Family Asthma: Yes - COPD Hx Cardiac Disease: Yes - CABG Physical Exam - Physical Exam General Appearance: Alert Respiratory: lungs clear, normal breath sounds Cardiovascular/Chest: normal peripheral pulses, regular rate, rhythm Gastrointestinal/Abdominal: normal bowel sounds, non tender, soft, other - left testicle TTP Progress - Progress Progress: 07/16/18 04:09 Patient given Bactrim DS po x one in the E.D. and a 10 day RX for BID. Care instructions given. E.R. warnings given. Questions were elicited and answered. Patient voiced understanding and agreement with the plan. - EKG/XRAY/CT CT Ordered: No CT Interpretation Call Back: No Departure - Departure Clinical Impression: Epididymitis Disposition: Discharge to Home or Self Care Condition: Good Departure Forms: ED Discharge - Pt. Copy, Patient Portal Self Enrollment Diet: resume usual diet Activity: increase activity as tolerated Prescriptions: Sulfa/Trimeth 800/160 (Ds) Tab [Bactrim DS] 1 tablet PO BID #19 tab Home Medications: Ambulatory Orders Acetamin W/Cod #3 Tab [Tylenol w/CODEINE #3] 1 ea PO Q8HRS PRN #14 tab 07/14/18 Ciprofloxacin [Cipro] 250 mg PO Q12H #42 tablet 07/14/18 Sulfa/Trimeth 800/160 (Ds) Tab [Bactrim DS] 1 tablet PO BID #19 tab 07/16/18 Additional Instructions: Take medication as prescribed. See your regular doctor next week to recheck the testicle.
[2018-07-16 04:26] VITALS: BP 121/81; O2SAT 94
== END 2018-07-16 04:26 | disposition home or self-care (01) ==
LOC: ER 02:57
DX: N45.1 Epididymitis (principal); R51 Headache; Z88.0 Allergy status to penicillin

== ENCOUNTER 2018-07-23 12:07 | Emergency (ER) | payer SELFPAY ==
[2018-07-23 12:21] VITALS: BP 134/104; TEMP 97.9; O2SAT 99
--- NOTE | 2018-07-23 12:37 | ED.PDOC ---
History of Present Illness - General Chief Complaint: Skin/Abrasion/Tear Stated Complaint: Rash developed while taking bactrim Time Seen by Provider: 07/23/18 12:35 Source: patient Exam Limitations: no limitations - History of Present Illness Initial Comments: Pt has pruritic rash x 3 days while taking Bactrim for epididymitis. Stopped taking bactrim 3 days ago but rash is not better. Has been using Hydrocortisone cream Timing/Duration: constant Severity: moderate Location: torso, extremities Improving Factors: nothing Worsening Factors: nothing Associated Symptoms: denies symptoms Allergies/Adverse Reactions: Allergies Penicillins Allergy (Verified 07/23/18 12:21) Unknown Home Medications: Ambulatory Orders Hydroxyzine HCl [Hydroxyzine Hydrochloride] 25 mg PO Q6HR PRN #30 tab 07/23/18 Prednisone [Deltasone] 20 mg PO BID #10 tab 07/23/18 Review of Systems - Review of Systems Constitutional: Denies: chills, fever EENTM: Denies: throat pain, throat swelling Respiratory: Denies: cough, short of breath, wheezing Cardiology: Denies: chest pain Gastrointestinal/Abdominal: Denies: abdominal pain, nausea, vomiting Genitourinary: Denies: discharge, dysuria, frequency Skin: States: dryness, rash Neurological: States: no symptoms reported Endocrine: States: no symptoms reported Hematologic/Lymphatic: States: no symptoms reported Past Medical History (General) - Patient Medical History Hx Seizures: No Hx Stroke: No Hx Dementia: No Hx Asthma: No Hx of COPD: No Hx Cardiac Disorders: Yes - SVT Hx Congestive Heart Failure: No Hx Pacemaker: No Hx Hypertension: No Hx Thyroid Disease: No Hx Diabetes: No Hx Gastroesophageal Reflux: No Hx Renal Disease: No Hx Cancer: No Hx of HIV: No Hx Hepatitis C: No Hx MRSA: No Surgical History: no surgical history - Vaccination History Hx Tetanus, Diphtheria Vaccination: No Hx Influenza Vaccination: No Hx Pneumococcal Vaccination: No - Social History Hx Tobacco Use: Yes Hx Chewing Tobacco Use: No Hx Alcohol Use: Yes - occ Hx Substance Use: No Hx Substance Use Treatment: No Hx Depression: No Hx Physical Abuse: No Hx Emotional Abuse: No Hx Suspected Abuse: No - Female History Patient is a Female of Child Bearing Age (10 -59 yrs old): No Patient : No Family Medical History - Family History Mother Family History: Unknown Living Status: Hx Family Cancer: Yes - breast, then brain Father Family History: Unknown Living Status: Still Living Hx Family Asthma: Yes - COPD Hx Cardiac Disease: Yes - CABG Physical Exam - Physical Exam General Appearance: Alert, Anxious Eyes, Ears, Nose, Throat Exam: PERRL/EOMI Extremity: normal range of motion, non-tender, no pedal edema Neurologic: alert, normal mood/affect, oriented x 3 Skin Exam: warm/dry, normal color Skin Problem Location: upper extremities, other - back Skin Character: papules Lymphatic: no adenopathy Departure - Departure Clinical Impression: Pruritic rash Disposition: Discharge to Home or Self Care Departure Forms: ED Discharge - Pt. Copy, Patient Portal Self Enrollment Prescriptions: Hydroxyzine HCl [Hydroxyzine Hydrochloride] 25 mg PO Q6HR PRN #30 tab PRN Reason: For Itching Prednisone [Deltasone] 20 mg PO BID #10 tab Home Medications: Ambulatory Orders Hydroxyzine HCl [Hydroxyzine Hydrochloride] 25 mg PO Q6HR PRN #30 tab 07/23/18 Prednisone [Deltasone] 20 mg PO BID #10 tab 07/23/18
== END 2018-07-23 12:46 | disposition home or self-care (01) ==
LOC: ER 12:07
DX: R21 Rash and other nonspecific skin eruption (principal); Z87.891 Personal history of nicotine dependence; Z88.0 Allergy status to penicillin

== ENCOUNTER 2018-08-16 14:02 | Emergency (ER) | payer SELFPAY ==
--- NOTE | 2018-08-16 15:26 | ED.PDOC ---
History of Present Illness - General Chief Complaint: Neck Injury/Pain Stated Complaint: neck pain Time Seen by Provider: 08/16/18 15:03 Source: patient - History of Present Illness Initial Comments: Louis Linares 38 y/o male came to ER with sharp neck pain while playing games on his computer this afternoon and felt heart was also raising .No N/V,no dizziness,bno blurry vision no weakness,no dysarthria. Timing/Duration: 4-6 hours Severity: moderate Improving Factors: nothing Worsening Factors: movement - moving neck up/down Allergies/Adverse Reactions: Allergies Penicillins Allergy (Verified 07/23/18 12:21) Unknown Home Medications: Ambulatory Orders NK 08/16/18 Review of Systems - Review of Systems Constitutional: States: no symptoms reported EENTM: States: no symptoms reported Respiratory: States: no symptoms reported Cardiology: States: see HPI, palpitations Musculoskeletal: States: neck pain All other Systems: Reviewed and Negative, No Change from Baseline Past Medical History (General) - Patient Medical History Hx Seizures: No Hx Stroke: No Hx Dementia: No Hx Asthma: No Hx of COPD: No Hx Cardiac Disorders: Yes - SVT Hx Congestive Heart Failure: No Hx Pacemaker: No Hx Hypertension: No Hx Thyroid Disease: No Hx Diabetes: No Hx Gastroesophageal Reflux: No Hx Renal Disease: No Hx Cancer: No Hx of HIV: No Hx Hepatitis C: No Hx MRSA: No Surgical History: other - orchiopexy - Vaccination History Hx Tetanus, Diphtheria Vaccination: No Hx Influenza Vaccination: No Hx Pneumococcal Vaccination: No - Social History Hx Tobacco Use: Yes Hx Chewing Tobacco Use: No Hx Alcohol Use: Yes - occ Hx Substance Use: No Hx Substance Use Treatment: No Hx Depression: No Hx Physical Abuse: No Hx Emotional Abuse: No Hx Suspected Abuse: No - Female History Patient : No Family Medical History - Family History Mother Family History: Unknown Living Status: Hx Family Cancer: Yes - breast, then brain Father Family History: Unknown Living Status: Still Living Hx Family Asthma: Yes - COPD Hx Cardiac Disease: Yes - CABG Physical Exam - Physical Exam General Appearance: Alert, Comfortable, No apparent distress Eye Exam: bilateral normal Ears, Nose, Throat: hearing grossly normal, normal ENT inspection, normal pharynx Neck: full range of motion, supple, normal inspection Respiratory: lungs clear, normal breath sounds Cardiovascular/Chest: normal peripheral pulses, regular rate, rhythm, no murmur Gastrointestinal/Abdominal: normal bowel sounds, non tender, soft, no organomegaly Back Exam: no CVA tenderness, no vertebral tenderness Extremity: no pedal edema, no calf tenderness Neurologic: alert, oriented x 3 Skin Exam: normal color, warm/dry Progress - Progress Progress: 08/16/18 16:27 Vital Signs - 8 hr 08/16/18 08/16/18 14:05 15:02 Temperature 99.0 F Pulse Rate [ 99 H 89 Right Radial] Respiratory 20 20 Rate Blood Pressure 153/102 127/95 [Right Arm] O2 Sat by Pulse 98 96 Oximetry 08/16/18 16:27 Stated felt better - Results/Orders Results/Orders: 08/16/18 15:29 EKG Assessment ONCE 08/16/18 15:30 EKG STAT Laboratory Results - last 24 hr 08/16/18 15:29 WBC 8.2 RBC 5.71 Hgb 17.2 Hct 50.8 MCV 89.1 MCH 30.1 MCHC 33.8 RDW 15.1 H Plt Count 211 MPV 8.7 Absolute Neuts (auto) 4.30 Absolute Lymphs (auto) 3.10 Absolute Monos (auto) 0.60 Absolute Eos (auto) 0.20 Absolute Basos (auto) 0.00 Neutrophils % 53.0 Lymphocytes % 37.2 Monocytes % 7.1 Eosinophils % 2.1 Basophils % 0.6 PT 9.6 INR 0.96 PTT (SP) 26.1 Sodium 136 Potassium 3.9 Chloride 97 L Carbon Dioxide 24 Anion Gap 18.9 H BUN 16 Creatinine 1.34 H BUN/Creatinine Ratio 11.9 Random Glucose 94 Serum Osmolality 272.9 L Calcium 10.3 H Magnesium 2.4 Total Bilirubin 0.7 Direct Bilirubin < 0.1 Indirect Bilirubin 0.6 AST 34 ALT 33 Alkaline Phosphatase 78 Creatine Kinase 100 CK-MB (CK-2) 1.6 CK-MB (CK-2) % Not Reportable Troponin I < 0.02 Serum Total Protein 8.6 H Albumin 4.5 Discuss all test result with patient - EKG/XRAY/CT EKG: Sinus, no ST T wave changes Comments: HR-83 Departure - Departure Clinical Impression: Neck pain, Palpitations Time of Disposition: 16:29 Disposition: Discharge to Home or Self Care Condition: Fair Departure Forms: ED Discharge - Pt. Copy, Patient Portal Self Enrollment Instructions: Cervical Muscle Strain (DC), Palpitations (DC) Home Medications: Ambulatory Orders NK 08/16/18 Additional Instructions: May take over the counter Aleve(naproxen)1-2 tablets am/pm for pain;return to ER as needed
[2018-08-16] MEDS ORDERED: ORPHENADRINE CITRATE 30 MG/ML AMP IM ONE (15:29)
[2018-08-16] MEDS ORDERED: KETOROLAC TROMETHAMINE INJ 30 MG/ML VIAL IM ONE (15:29)
--- NOTE | 2018-08-16 16:12 | RAD ---
EXAM: Cervical Spine,3 Views CLINICAL INDICATION: [<Neck pain>]. COMPARISON: There is no previous study for comparison. FINDINGS: Three views of the cervical spine reveal no fracture or subluxation. The intervertebral disk spaces are preserved. The prevertebral soft tissues appear unremarkable. IMPRESSION: Negative cervical spine radiographs. Electronically signed by: Tacho Gillespie MD 08/16/2018 4:09 PM CDT
[2018-08-16 17:14] VITALS: BP 123/87; TEMP 98; O2SAT 97
== END 2018-08-16 17:05 | disposition home or self-care (01) ==
LOC: ER 14:02
DX: M54.2 Cervicalgia (principal); R00.2 Palpitations; Z87.891 Personal history of nicotine dependence; Z88.0 Allergy status to penicillin
CPT/HCPCS: 72040; 80048; 80076; 82550; 82553; 84484; 85025; 85610; 85730; 93005; J1885; J2360

== ENCOUNTER 2019-04-11 04:28 | Emergency (ER) | payer SELFPAY ==
[2019-04-11] MEDS ORDERED: IPRATROPIUM/ALBUTEROL 3 ML VIAL NEB ONE ×3 (04:50→05:44)
[2019-04-11] MEDS ORDERED: methylPREDNISolone SODIUM SUC 125 MG/2 ML VIAL IM ONE (05:09)
--- NOTE | 2019-04-11 05:11 | ED.PDOC ---
History of Present Illness - General Chief Complaint: Respiratory Problem Stated Complaint: coughing unable to lay down Time Seen by Provider: 04/11/19 04:58 Source: patient - History of Present Illness Initial Comments: 38 yo male with PMH of chronic smoker who presents with cc of cough and dyspnea. Onset 4 days ago and worsening, reports up all night tonight with frequent hacking cough - was productive yesterday for green sputum but now has become mostly white/clear, cough worse with activity, little improvement with albuterol nebs at home (used his kid's machine). Denies any fevers, chills, chest pain, abd pain, n/v/d. Slight sore throat. Pt admits to smoking 1 ppd cigarettes usually but down to about 1/3 ppd while ill currently. Allergies/Adverse Reactions: Allergies Penicillins Allergy (Verified 07/23/18 12:21) Unknown Home Medications: Ambulatory Orders Albuterol Sulfate Nebs [Proventil Nebs] 2.5 mg INH Q4H PRN 10 Days #10 vial 04/11/19 Azithromycin Tab [Zithromax Tab] 250 mg PO DAILY 5 Days #6 tab 04/11/19 predniSONE 60 mg PO DAILY 5 Days #15 tab 04/11/19 Review of Systems - Review of Systems Review of Systems: 04/11/19 05:16 as per HPI All other Systems: Reviewed and Negative Past Medical History (General) - Patient Medical History Hx Seizures: No Hx Stroke: No Hx Dementia: No Hx Asthma: No Hx of COPD: No Hx Cardiac Disorders: Yes - SVT Hx Congestive Heart Failure: No Hx Pacemaker: No Hx Hypertension: No Hx Thyroid Disease: No Hx Diabetes: No Hx Gastroesophageal Reflux: No Hx Renal Disease: No Hx Cancer: No Hx of HIV: No Hx Hepatitis C: No Hx MRSA: No Surgical History: other - Vaccination History Hx Tetanus, Diphtheria Vaccination: Yes Hx Influenza Vaccination: No Hx Pneumococcal Vaccination: No Immunizations Up to Date: No - Social History Hx Tobacco Use: Yes Hx Chewing Tobacco Use: No Hx Alcohol Use: Yes - occ Hx Substance Use: No Hx Substance Use Treatment: No Hx Depression: No Feels Threatened In Home Enviroment: No Feels Threatened In a Relationship: No Hx Physical Abuse: No Hx Emotional Abuse: No Hx Suspected Abuse: No - Activities of Daily Living Hospice Agency (if applicable):: None - Female History Patient is a Female of Child Bearing Age (10 -59 yrs old): No Patient : No Family Medical History - Family History Mother Family History: Unknown Living Status: Hx Family Cancer: Yes - breast, then brain Father Family History: Unknown Living Status: Still Living Hx Family Asthma: Yes - COPD Hx Cardiac Disease: Yes - CABG Physical Exam - Physical Exam General Appearance: Alert, No apparent distress Eye Exam: bilateral normal Ears, Nose, Throat: hearing grossly normal, normal ENT inspection, normal pharynx Neck: non-tender, full range of motion, supple, normal inspection Respiratory: chest non-tender, no respiratory distress, no accessory muscle use, wheezing - diffuse expiratory wheezes throughout, other - no rales Cardiovascular/Chest: normal peripheral pulses, regular rate, rhythm, no edema, no gallop, no murmur Gastrointestinal/Abdominal: non tender, soft, no organomegaly Back Exam: normal inspection, no CVA tenderness Extremity: normal range of motion, non-tender, normal inspection, no pedal edema, no calf tenderness 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 Suspect COPD as chronic smoker - states 1 ppd usually, still smoking several cigarettes daily now even while ill. Consider also flu vs PNA as well -obtain 2v CXR & flu testing -Duonebs in ED, Solumedrol 125 mg IM, reassess 04/11/19 06:24 -Pt markedly improved following Duoneb x3 in ED - wheezes nearly fully resolved, excellent air movement, vitals remain wnl -CXR clear per my read -will dc home with Rx of Prednisone 60 mg daily x5 days, Albuterol nebs PRN, and Z-pack given productive cough to cover for possible bacterial acute bronchitis -discussed smoking cessation Kirby Rodriguez MD Billing #[id number] - Results/Orders Results/Orders: 04/11/19 05:09 Chest,2 Views [RAD] Stat Departure - Departure Clinical Impression: COPD exacerbation Acute bronchitis Qualifiers: Bronchitis organism: unspecified organism Qualified Code(s): J20.9 - Acute bronchitis, unspecified Disposition: Discharge to Home or Self Care Condition: Fair Departure Forms: ED Discharge - Pt. Copy, Patient Portal Self Enrollment Instructions: Exacerbation of COPD (DC) Diet: resume usual diet Activity: increase activity as tolerated - avoid heavy physical exertion for next 3-4 days, no smoking Prescriptions: Albuterol Sulfate Nebs [Proventil Nebs] 2.5 mg INH Q4H PRN 10 Days #10 vial PRN Reason: Wheezing Azithromycin Tab [Zithromax Tab] 250 mg PO DAILY 5 Days #6 tab predniSONE 60 mg PO DAILY 5 Days #15 tab Home Medications: Ambulatory Orders Albuterol Sulfate Nebs [Proventil Nebs] 2.5 mg INH Q4H PRN 10 Days #10 vial 04/11/19 Azithromycin Tab [Zithromax Tab] 250 mg PO DAILY 5 Days #6 tab 04/11/19 predniSONE 60 mg PO DAILY 5 Days #15 tab 04/11/19 Additional Instructions: Quit smoking as this will greatly slow your recovery time and continue to cause permanent damage to your lungs. Take the steroids as directed. I advised taking a breathing treatment at home every 4 hours for the next 24 hours and then taking every 4 hours as needed after that for shortness of breath or wheezing. Follow up with your primary care doctor in 1-2 weeks.
[2019-04-11 06:38] VITALS: BP 115/72; TEMP 98; O2SAT 97
--- NOTE | 2019-04-11 06:52 | RAD ---
EXAM: XR Chest, 2 Views CLINICAL HISTORY: The patient is 38 years old and is Male; cough, dyspnea, hx of PNA TECHNIQUE: Frontal and lateral views of the chest. COMPARISON: Chest CT from 04/15/2017 FINDINGS: LUNGS: Unremarkable. No consolidation. PLEURAL SPACE: Unremarkable. No pneumothorax. HEART: No significant enlargement of the cardiac silhouette. MEDIASTINUM: Unremarkable. BONES/JOINTS: No acute osseous findings. IMPRESSION: No acute findings visualized in the chest. Electronically signed by: Shae Rao MD 04/11/2019 6:49 AM [facility]
== END 2019-04-11 06:31 | disposition home or self-care (01) ==
LOC: ER 04:28
DX: J44.1 Chronic obstructive pulmonary disease with (acute) exacerbation (principal); J20.9 Acute bronchitis, unspecified; J44.0 Chronic obstructive pulmonary disease with (acute) lower respiratory infection; F17.210 Nicotine dependence, cigarettes, uncomplicated; Z88.0 Allergy status to penicillin
CPT/HCPCS: 71046; 87502; 94640; J2930; J7620

== ENCOUNTER 2020-03-17 13:37 | Emergency (ER) | payer SELFPAY ==
--- NOTE | 2020-03-17 14:13 | ED.PDOC ---
History of Present Illness - General Time Seen by Provider: 03/17/20 14:05 Additional Information: Patient is a 39-year-old male who presents to the ED with chief complaint of mild sore throat and cough. Patient has had the symptoms for 2 to 3 days and a persistent but not worsening. Patient indicates that his son was 2 days ago diagnosed with both Covid and strep throat and patient is worried he may have caught this from his son. Patient denies fever, chills, nausea, vomiting, chest pain, shortness of breath. Patient is otherwise asymptomatic. - History of Present Illness Allergies/Adverse Reactions: Allergies Penicillins Allergy (Verified 07/23/18 12:21) Unknown Home Medications: Ambulatory Orders Albuterol Sulfate Nebs [Proventil Nebs] 2.5 mg INH Q4H PRN 10 Days #10 vial 04/11/19 Azithromycin Tab [Zithromax Tab] 250 mg PO DAILY 5 Days #6 tab 04/11/19 predniSONE 60 mg PO DAILY 5 Days #15 tab 04/11/19 Azithromycin [Zithromax Z-Booker] 250 mg PO DAILY #6 tab 03/17/20 Ibuprofen 800 mg PO Q8H PRN #20 tab 03/17/20 Review of Systems - Review of Systems Constitutional: Denies: chills, fever EENTM: States: see HPI, throat pain. Denies: nose congestion Respiratory: States: cough. Denies: orthopnea, short of breath Cardiology: States: no symptoms reported. Denies: chest pain, palpitations Gastrointestinal/Abdominal: States: no symptoms reported. Denies: abdominal pain, nausea, vomiting Skin: States: no symptoms reported. Denies: rash All other Systems: Reviewed and Negative Past Medical History (General) - Patient Medical History Hx Seizures: No Hx Stroke: No Hx Dementia: No Hx Asthma: No Hx of COPD: No Hx Cardiac Disorders: Yes - SVT Hx Congestive Heart Failure: No Hx Pacemaker: No Hx Hypertension: No Hx Thyroid Disease: No Hx Diabetes: No Hx Gastroesophageal Reflux: No Hx Renal Disease: No Hx Cancer: No Hx of HIV: No Hx Hepatitis C: No Hx MRSA: No - Vaccination History Hx Tetanus, Diphtheria Vaccination: Yes Hx Influenza Vaccination: No Hx Pneumococcal Vaccination: No - Social History Hx Tobacco Use: Yes Hx Chewing Tobacco Use: No Hx Alcohol Use: Yes - occ Hx Substance Use: No Hx Substance Use Treatment: No Hx Depression: No Hx Physical Abuse: No Hx Emotional Abuse: No Hx Suspected Abuse: No - Female History Patient : No Family Medical History - Family History Mother Family History: Unknown Living Status: Hx Family Cancer: Yes - breast, then brain Father Family History: Unknown Living Status: Still Living Hx Family Asthma: Yes - COPD Hx Cardiac Disease: Yes - CABG Physical Exam - Physical Exam General Appearance: Alert, Comfortable, No apparent distress, Well Developed, Well Nourished ENT Exam: normal ENT inspection, pharynx normal, other - Negative tonsillar exudate, uvula is midline, voice is normal. 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 Given that patient's son has recently been diagnosed with Covid and strep throat, it is reasonable to treat patient empirically for this without testing. I discussed this plan with patient who is in agreement. Vital signs stable, patient is NAD and looks clinically well and I believe is safe for discharge with outpatient follow-up. Follow-up instructions, discharge instructions and return to ED precautions discussed with patient. Patient voices understanding and willingness to comply with instructions. All questions answered. Patient is happy with plan. Departure - Departure Clinical Impression: Suspected COVID-19 virus infection Pharyngitis Qualifiers: Pharyngitis/tonsillitis etiology: unspecified etiology Qualified Code(s): J02.9 - Acute pharyngitis, unspecified Time of Disposition: 14:17 Disposition: Discharge to Home or Self Care Condition: Good Instructions: Coronavirus Disease 2019 (COVID-19), Sore Throat, Adult (DC) Referrals: MANJU AMAYA MD [Active Staff] - 1 Week Prescriptions: Ibuprofen 800 mg PO Q8H PRN #20 tab PRN Reason: Pain Azithromycin [Zithromax Z-Booker] 250 mg PO DAILY #6 tab Home Medications: Ambulatory Orders Albuterol Sulfate Nebs [Proventil Nebs] 2.5 mg INH Q4H PRN 10 Days #10 vial 04/11/19 Azithromycin Tab [Zithromax Tab] 250 mg PO DAILY 5 Days #6 tab 04/11/19 predniSONE 60 mg PO DAILY 5 Days #15 tab 04/11/19 Azithromycin [Zithromax Z-Booker] 250 mg PO DAILY #6 tab 03/17/20 Ibuprofen 800 mg PO Q8H PRN #20 tab 03/17/20
[2020-03-17 14:23] VITALS: BP 169/115; TEMP 97; O2SAT 97
== END 2020-03-17 14:30 | disposition home or self-care (01) ==
LOC: ER 13:37
DX: J02.9 Acute pharyngitis, unspecified (principal); R05 Cough; R00.0 Tachycardia, unspecified; Z20.828 Contact with and (suspected) exposure to other viral communicable diseases; Z87.891 Personal history of nicotine dependence; Z88.0 Allergy status to penicillin